=== PATIENT | male | born 1995 | race Caucasian/White ===

== ENCOUNTER 2022-02-11 18:14 | Emergency (ER) | payer SELFPAY ==
[~2022-02-11] VITALS: Ht 180.3 cm; Wt 86.2 kg
[2022-02-11 18:28] VITALS: BP 147/102
--- NOTE | 2022-02-11 18:35 | NUR ---
Pt noticed to be walking towards the exit gait even and steady Discontinued/pulled out HL from [facility] himself. NO active bleeding noted. Eloped Dr [place] made aware
== END 2022-02-11 19:17 | disposition left against medical advice (07) ==
LOC: ER 18:16
DX: Z53.21 Procedure and treatment not carried out due to patient leaving prior to being seen by health care provider (principal)